=== PATIENT | male | born 1945 | race Caucasian/White ===

== ENCOUNTER 2022-12-18 08:25 | Outpatient (CLI) | payer OTHER | END 2022-12-18 08:40 | disposition home or self-care (01) | LOC: TOM 08:25 | PROVIDERS: ATTEND Internal Medicine Gastroenterology | DX: D50.9 Iron deficiency anemia, unspecified (principal); R79.89 Other specified abnormal findings of blood chemistry; I70.90 Unspecified atherosclerosis; R16.0 Hepatomegaly, not elsewhere classified ==